=== PATIENT | female | born 1955 | race Caucasian/White ===

== ENCOUNTER 2018-03-10 18:02 | Emergency (ER) | payer MEDICAID ==
[~2018-03-10] VITALS: Ht 170.2 cm; Wt 81.6 kg
[2018-03-10] MEDS ORDERED: ONDANSETRON HCL/PF 4 MG/2 ML VIAL IVP ONE (18:30)
[2018-03-10] MEDS ORDERED: IV NS 0.9% 1,000 ML BAG IV ONE (18:30)
[2018-03-10] MEDS ORDERED: ONDANSETRON HCL/PF 4 MG/2 ML VIAL ONE (18:30)
[2018-03-10 18:32] LABS: BASOPHILS % (AUTO) 0.2 % (0.0-2.0); EOSINOPHILS % (AUTO) 0.8 % (0.0-6.0); HEMATOCRIT 45 % (33-45); HEMOGLOBIN 15.4 g/dL (11.5-14.8); LYMPHOCYTES # (AUTO) 0.8 /CMM (0.8-4.8); LYMPHOCYTES % (AUTO) 8.2 % (20.0-44.0); MEAN CORPUSCULAR HEMOGLOBIN 32 PG (26.0-33.0); MEAN CORPUSCULAR HGB CONC 34 g/dl (31.0-36.0); MEAN CORPUSCULAR VOLUME 94 fL (82-100); MONOCYTES # (AUTO) 0.6 /CMM (0.1-1.30); MONOCYTES % (AUTO) 6.3 % (2.0-12.0); NEUTROPHILS # (AUTO) 8.4 /CMM (1.8-8.9); NEUTROPHILS % (AUTO) 84.5 % (43.0-81.0); PLATELET COUNT (AUTO) 186 /CMM (150-450); RDW COEFFICIENT OF VARIATION 12.2 (11.5-15.0); WHITE BLOOD COUNT (AUTO) 9.9 K/uL (4.3-11.0)
[2018-03-10 18:34] LABS: APPEARANCE,URINE Slightly Cloudy (CLEAR); BILIRUBIN,URINE Negative (NEGATIVE); BLOOD, URINE Trace-lysed Ery/uL (NEGATIVE); COLOR,URINE Yellow (YELLOW); KETONES,URINE 15 (NEGATIVE); LEUKOCYTE ESTERASE ,URINE Small (NEGATIVE); NITRITE, URINE Positive (NEGATIVE); PH,URINE 5.5 (5.0-8.0); PROTEIN,URINE Negative (NEGATIVE); UGLUCOSE Negative (NEGATIVE)
[2018-03-10 18:44] LABS: CALCIUM, SERUM 8.6 mg/dL (8.5-10.1); CARBON DIOXIDE 23 mmol/L (21-32); CHLORIDE 98 mmol/L (98-107); GLUCOSE 165 mg/dL (74-106); POTASSIUM 3.7 mmol/L (3.5-5.1); SODIUM SERUM 134 mmol/L (136-145); UREA NITROGEN, BLOOD 19 mg/dL (7-18)
[2018-03-10 18:50] LABS: ALANINE AMINOTRANSFERASE 25 U/L (12-78); ALBUMIN 3.7 g/dL (3.4-5.0); ALKALINE PHOSPHATASE 59 U/L (46-116); ASPARTATE AMINOTRANSFERASE 18 U/L (15-37); BILIRUBIN,DIRECT 0.1 mg/dL (0.0-0.2); BILIRUBIN,TOTAL 0.4 mg/dL (0.2-1.0); LIPASE 210 U/L (73-393); TOTAL PROTEIN, SERUM 7.6 g/dL (6.4-8.2)
[2018-03-10 18:51] LABS: BACTERIA,URINE Many /HPF (None Seen); SQUAMOUS EPITHELIAL CELL,UR Many /HPF (None Seen)
[2018-03-10 18:51] LABS: TROPONIN I < 0.017 ng/mL (0.00-0.056)
[2018-03-10] MEDS ORDERED: CEFTRIAXONE 1 G in IV D5W 50 ML IV ONE (19:00)
[2018-03-10] MEDS ORDERED: CEFTRIAXONE 1 G VIAL ONE (19:05)
[2018-03-10] MEDS ORDERED: CEFTRIAXONE 1GM BAG (ER ONLY) 50 ML IV ONE (19:06)
--- NOTE | 2018-03-10 19:15 | NUR ---
PT ENDORSED FROM [facility]. PT A/OX4. STABLE CONDITION. C/C OF GEN WEAKNESS. VSS. SKINS PINK WARM AND DRY. NEG ACUTE DISTRESS. SAFETY MEASURES IN PLACE.
[2018-03-10 20:07] VITALS: BP 124/70
== END 2018-03-10 20:07 | disposition home or self-care (01) ==
LOC: ER 18:03
DX: N30.00 Acute cystitis without hematuria (principal); E86.0 Dehydration; R63.0 Anorexia; I10 Essential (primary) hypertension; E78.5 Hyperlipidemia, unspecified; E11.9 Type 2 diabetes mellitus without complications; E78.00 Pure hypercholesterolemia, unspecified
CPT/HCPCS: 36415; 71045; 80048; 80076; 81001; 83690; 83735; 84443; 84484; 85025; 85730; 87077; 87086; 87186; 96361; 96365; 96375; 99285; A4606; J0696 ×2; J2405; J7030; J7060; Z7610; 81000-TC

== ENCOUNTER 2024-08-29 15:58 | Emergency (ER) | payer OTHER, MEDICAID ==
[~2024-08-29] VITALS: Ht 170.2 cm; Wt 81.6 kg
[2024-08-29 16:44] VITALS: BP 139/96; TEMP 98.3
[2024-08-29] MEDS ORDERED: IBUPROFEN 600 MG TABLET ONE (17:50)
[2024-08-29] MEDS: IBUPROFEN 600 MG TABLET PO ONE (17:52)
[2024-08-29] MEDS ORDERED: AMOX-430 PO (18:38)
[2024-08-29 19:10] VITALS: O2SAT 98
== END 2024-08-29 19:10 | disposition home or self-care (01) ==
LOC: ER 16:08
DX: J03.90 Acute tonsillitis, unspecified (principal); R05.9 Cough, unspecified; I10 Essential (primary) hypertension; E78.00 Pure hypercholesterolemia, unspecified; E11.9 Type 2 diabetes mellitus without complications
CPT/HCPCS: 71045-TC; 86403-TC; 87070-TC